=== PATIENT | male | born 1945 | race Caucasian/White ===

== ENCOUNTER 2018-02-26 13:11 | Emergency (ER) | payer MEDICARE, BC, SELFPAY ==
[2018-02-26 13:18] VITALS: BP 113/80; PULSE 72; RESP 18; TEMP 36.4; O2SAT 96
--- NOTE | 2018-02-26 13:22 | ED.GENADUL ---
Disposition Clinical Impression: Finger laceration Disposition: HOME Condition: Fair Instructions: Finger Laceration (ED) Additional Instructions: Continue to elevate the digits today. Tylenol and/or ibuprofen as needed for discomfort. Keep wound clean, dry, covered. Keep current dressing on for the next 24 hours. After that time you may change and replaced with a Band-Aid. When she will take off this bulky dressing please apply the foam and metal splint provided. Monitor wound for signs of infection including redness, warmth, drainage, fever/chills, increased pain. If these arise please seek care urgently once again. Otherwise, please return in 7 days for suture removal. Referrals: Allie Mccollum [Primary Care Provider] - [facility] Emergency Dept. [Outside] Medical Decision Making - Medical Decision Making Patient presents today with chief complaint of laceration to the index finger of the left hand. Wound does extend down onto the radial side of the PIP joint. Sensation is intact as is range of motion. Ligamentous exam is without abnormality. Wound is actively bleeding. Approximately 2cm in length, laceration is S-shaped. Patient denied discussed closure techniques. Wound is in the subcutaneous tissue and is open with flexion. Advised suture closure. We discussed risk/benefits as well as expected procedural steps. He voices understanding and wished to proceed. Procedure note: Using standard sterile technique, a digital block was performed at the base of the index finger of the left hand. This is completed using 1% lidocaine plain. 4 cc was infiltrated. The sufficiently anesthetized the digit. The wound was then copiously irrigated with sterile saline. I used a tourniquet so that I may explore the wound to base in bloodless field. No foreign body or debris was noted. Attention was then turned to closure. #7 simple interrupted sutures were placed using 5-0 nylon. Patient tolerated procedure well and a bulky dressing was applied. Patient I discussed wound care in depth. He will keep his current dressing on for the next 24 hours. After that time, he will keep it clean, dry, covered with new sterile bandage. He was given a foam and metal splint to help immobilize the areas I feel that extreme flexion of the PIP joint may put undue force on the wound. He will return in 7 days for suture removal. We discussed signs symptoms of infection when to seek care urgently once again. Advised he may wash but he may not soak or submerge this may increase his risk for infection. All of his questions and concerns were addressed and he is in agreement with this plan. History of Present Illness - General Chief complaint: Laceration Stated complaint: LEFT POINTER LACERATION Time Seen by Provider: 02/26/18 13:22 Source: patient, RN notes reviewed Mode of arrival: ambulatory Limitations: no limitations - History of Present Illness Initial comments: Patient is a 72-year-old vfljf-jgbj-qftukgub male presents today with chief complaint of laceration to the left index finger. Patient reports a prior to arrival he was woodworking, using an X-Acto knife when he is PIP joint on the dorsal radial aspect of the digit. He denies any altered sensation. Denies other injury the time of the incident. Feels that he has good range of motion. Tdap last received 2013. - Related Data BuPROPion XL [Wellbutrin Xl] 150 mg PO DAILY 06/08/13 Clonazepam 2 mg PO HS 06/08/13 OxyCODONE [Roxicodone] 20 mg PO BID 06/08/13 Dextroamphetamine/Amphetamine [Adderall Xr 30 mg Capsule] 30 mg PO DAILY 02/26/18 Allergies Allergy/AdvReac Type Severity Reaction Status Date / Time gabapentin [From Neurontin] Allergy Skin Rash Unverified 06/08/13 15:26 meperidine HCl [From Demerol] Allergy HTN Unverified 06/08/13 15:26 trazodone Allergy Unverified 02/26/18 13:21 Review of Systems Constitutional: no symptoms reported Respiratory: no symptoms reported Musculoskeletal: as per HPI Skin: as per HPI Neurological: as per HPI Past Medical History - Past Medical History Medical history: cancer (bladder) Pancreatitis, M?ni?re's, SBO, epidural abscess, - Social History Alcohol use: none Drug use: none Living Situation: lives with family General Exam - General Limitations: no limitations General appearance: alert, in no apparent distress - Eye Eye exam: Present: normal apperance - Respiratory Respiratory exam: Absent: respiratory distress - Extremities Exam Extremities exam: Present: full ROM, tenderness, normal capillary refill. Absent: normal inspection (Exam the patient's left upper extremity is significant for a 2 cm S shaped incision along the radial aspect of the proximal index finger, this does extend down over the PIP joint. Sensation is intact. Good range of motion against resistance, no evidence of ligamentous injury. No joint swelling.), joint swelling - Neurological Exam Neurological exam: Present: alert, normal gait. Absent: motor sensory deficit - Psychiatric Psychiatric exam: Present: normal affect, normal mood - Skin Skin exam: Absent: intact (As above) Course Vital Signs - 24 hr 02/26/18 13:18 Temperature 36.4 C L Pulse 72 Respiratory 18 Rate Blood Pressure 113/80 Pulse Oximetry 96
[2018-02-26] MEDS: Lidocaine 1% Multi-Dose 50 ML VIAL (13:32)
--- NOTE | 2018-02-26 13:54 | ED.GENADUL_ITS ---
Disposition Clinical Impression: Finger laceration Disposition: HOME Condition: Fair Instructions: Finger Laceration (ED) Additional Instructions: Continue to elevate the digits today. Tylenol and/or ibuprofen as needed for discomfort. Keep wound clean, dry, covered. Keep current dressing on for the next 24 hours. After that time you may change and replaced with a Band-Aid. When she will take off this bulky dressing please apply the foam and metal splint provided. Monitor wound for signs of infection including redness, warmth , drainage, fever/chills, increased pain. If these arise please seek care urgently once again. Otherwise, please return in 7 days for suture removal. Referrals: Allie Mccollum [Primary Care Provider] - [facility] Emergency Dept. [Outside] Medical Decision Making - Medical Decision Making Patient presents today with chief complaint of laceration to the index finger of the left hand. Wound does extend down onto the radial side of the PIP joint. Sensation is intact as is range of motion. Ligamentous exam is without abnormality. Wound is actively bleeding. Approximately 2cm in length, laceration is S-shaped. Patient denied discussed closure techniques. Wound is in the subcutaneous tissue and is open with flexion. Advised suture closure. We discussed risk/benefits as well as expected procedural steps. He voices understanding and wished to proceed. Procedure note: Using standard sterile technique, a digital block was performed at the base of the index finger of the left hand. This is completed using 1% lidocaine plain. 4 cc was infiltrated. The sufficiently anesthetized the digit. The wound was then copiously irrigated with sterile saline. I used a tourniquet so that I may explore the wound to base in bloodless field. No foreign body or debris was noted. Attention was then turned to closure. #7 simple interrupted sutures were placed using 5-0 nylon. Patient tolerated procedure well and a bulky dressing was applied. Patient I discussed wound care in depth. He will keep his current dressing on for the next 24 hours. After that time, he will keep it clean, dry, covered with new sterile bandage. He was given a foam and metal splint to help immobilize the areas I feel that extreme flexion of the PIP joint may put undue force on the wound. He will return in 7 days for suture removal. We discussed signs symptoms of infection when to seek care urgently once again. Advised he may wash but he may not soak or submerge this may increase his risk for infection. All of his questions and concerns were addressed and he is in agreement with this plan. History of Present Illness - General Chief complaint: Laceration Stated complaint: LEFT POINTER LACERATION Time Seen by Provider: 02/26/18 13:22 Source: patient, RN notes reviewed Mode of arrival: ambulatory Limitations: no limitations - History of Present Illness Initial comments: Patient is a 72-year-old gyysq-slxr-alyrkazs male presents today with chief complaint of laceration to the left index finger. Patient reports a prior to arrival he was woodworking, using an X-Acto knife when he is PIP joint on the dorsal radial aspect of the digit. He denies any altered sensation. Denies other injury the time of the incident. Feels that he has good range of motion. Tdap last received 2013. - Related Data BuPROPion XL [Wellbutrin Xl] 150 mg PO DAILY 06/08/13 Clonazepam 2 mg PO HS 06/08/13 OxyCODONE [Roxicodone] 20 mg PO BID 06/08/13 Dextroamphetamine/Amphetamine [Adderall Xr 30 mg Capsule] 30 mg PO DAILY Allergies Allergy/AdvReac Type Severity Reaction Status Date / Time gabapentin [From Neurontin] Allergy Skin Rash Unverified 06/08/13 15:26 meperidine HCl [From Demerol] Allergy HTN Unverified 06/08/13 15:26 trazodone Allergy Unverified 02/26/18 13:21 Review of Systems Constitutional: no symptoms reported Respiratory: no symptoms reported Musculoskeletal: as per HPI Skin: as per HPI Neurological: as per HPI Past Medical History - Past Medical History Medical history: cancer (bladder) Pancreatitis, M ni re's, SBO, epidural abscess, - Social History Alcohol use: none Drug use: none Living Situation: lives with family General Exam - General Limitations: no limitations General appearance: alert, in no apparent distress - Eye Eye exam: Present: normal apperance - Respiratory Respiratory exam: Absent: respiratory distress - Extremities Exam Extremities exam: Present: full ROM, tenderness, normal capillary refill. Absent: normal inspection (Exam the patient's left upper extremity is significant for a 2 cm S shaped incision along the radial aspect of the proximal index finger, this does extend down over the PIP joint. Sensation is intact. Good range of motion against resistance, no evidence of ligamentous injury. No joint swelling.), joint swelling - Neurological Exam Neurological exam: Present: alert, normal gait. Absent: motor sensory deficit - Psychiatric Psychiatric exam: Present: normal affect, normal mood - Skin Skin exam: Absent: intact (As above) Course Vital Signs - 24 hr 02/26/18 13:18 Temperature 36.4 C L Pulse 72 Respiratory 18 Rate Blood Pressure 113/80 Pulse Oximetry 96
--- NOTE | 2018-02-26 15:42 | NUR.NOTE ---
Nursing Note: baseball finger splint given to take home.
== END 2018-02-26 14:09 | disposition home or self-care (01) ==
PROVIDERS: Emergency Provider Student in an Organized Health Care Education/Training Program; PCP Internal Medicine Adolescent Medicine
DX: S61.211A Laceration without foreign body of left index finger without damage to nail, initial encounter (principal); W26.0XXA Contact with knife, initial encounter
CPT/HCPCS: 12001

== ENCOUNTER 2018-03-06 07:53 | Emergency (ER) | payer MEDICARE, SELFPAY ==
[2018-03-06 07:57] VITALS: BP 110/72; PULSE 70; RESP 16; TEMP 36.7; O2SAT 99
--- NOTE | 2018-03-06 09:17 | W.ED.GENAD ---
Discharge Plan Discharge Details Chief Complaint: SutureRem Clinical Impression: Encounter for removal of sutures Reason For Visit: suture removal Primary Care Provider: Allie Mccollum ED Provider: Jermain Brownlee Disposition Patient Disposition: HOME Home Meds and New Rx's Prescriptions: Continue clonazepam 1 MG tablet 2 mg PO HS RF: 0 bupropion HCl 150 MG tablet extended release 24 hr 150 mg PO DAILY RF: 0 oxycodone 20 MG tablet 20 mg PO BID RF: 0 dextroamphetamine-amphetamine [Adderall XR] 30 MG capsule,extended release 24hr 30 mg PO DAILY RF: 0 Discharge Instructions Instructions: Stitches Removal (ED) Discharge Data Discharge Physician: Jermain Brownlee Medical Decision Making MDM Narrative Medical decision making narrative: removed 7 sutures without incident. No evidence of infection or tendon injury on exam, will d/c home HPI - General Adult General Mode of arrival: ambulatory. Date/Time Provider Initiated Documentation: 03/06/18 09:17. Limitations to Documentation: no limitations. Information obtained by: patient. History of Present Illness 72 year old M presents to the emergency department with the chief complaint of left index finger suture removal, described as mild, with intensity rated at 1. and is localized to the upper extremity. Patient reports no radiation. Patient notes no other symptoms.. Patient did receive the following treatments prior to arrival, none Related Data Home Medications Medication Instructions Recorded Confirmed bupropion HCl 150 mg PO DAILY 06/08/13 03/06/18 clonazepam 2 mg PO HS 06/08/13 03/06/18 oxycodone 20 mg PO BID 06/08/13 03/06/18 dextroamphetamine-amphetamine 30 mg PO DAILY 02/26/18 03/06/18 [Adderall XR] Allergies Allergy/AdvReac Type Severity Reaction Status Date / Time gabapentin [From Neurontin] Allergy Skin Rash Unverified 03/06/18 08:02 meperidine HCl [From Demerol] Allergy HTN Unverified 03/06/18 08:02 trazodone Allergy Unverified 03/06/18 08:02 General Stated Complaint: SutureRem LANCE: 5 Review of Systems Review of Systems All systems reviewed & are unremarkable except as noted in HPI and below Constitutional Denies chills, Denies fever(s) and Denies weakness Eyes Patient Denies loss of vision ENT Denies change in voice Cardiovascular Denies chest pain and Denies dyspnea Respiratory Denies dyspnea Gastrointestinal Denies abdominal pain, Denies nausea and Denies vomiting Genitourinary Denies dysuria Musculoskeletal Denies joint swelling Integumentary/Breasts Denies rash Neurologic Denies loss of vision and Denies weakness Psychiatric Denies depression Endocrine Denies cold intolerance and Denies heat intolerance Allergic/Immunologic Reports urticaria PFSH Social History Smoking/Tobacco Use Status: Never Exam Const General: no acute distress Orientation: alert HENMT Head: normal to inspection Ears: external ears normal General nose exam: external nose normal Mouth: moist mucous membranes Eyes General: appearance normal, both eyes and all related structures Neck Neck: normal visual inspection Resp Effort & Inspection: normal respiratory effort and able to speak in complete sentences Cardio Rate: regular rate Skin General skin exam: no rashes or lesions noted Neuro General: alert and oriented x3 Extrem General: other (left index finger laceration that is well healig without redness or discharge or warmth, full rom of the finger) Psych Mental Status: mental status grossly normal Course Vital Signs Temperature 36.7 C 03/06/18 07:57 Pulse 70 03/06/18 07:57 Respiratory Rate 16 03/06/18 07:57 Blood Pressure 110/72 03/06/18 07:57 Pulse Oximetry 99 03/06/18 07:57 Temperature 36.7 C 03/06/18 07:57 Pulse 70 03/06/18 07:57 Respiratory Rate 16 03/06/18 07:57 Blood Pressure 110/72 03/06/18 07:57 Pulse Oximetry 99 03/06/18 07:57
--- NOTE | 2018-03-06 09:21 | ED.GENADUL_ITS ---
Discharge Plan Discharge Details Chief Complaint: SutureRem Clinical Impression: Encounter for removal of sutures Reason For Visit: suture removal Primary Care Provider: Allie Mccollum ED Provider: Jermain Brownlee Disposition Patient Disposition: HOME Home Meds and New Rx's Prescriptions: Continue clonazepam 1 MG tablet 2 mg PO HS RF: 0 bupropion HCl 150 MG tablet extended release 24 hr 150 mg PO DAILY RF: 0 oxycodone 20 MG tablet 20 mg PO BID RF: 0 dextroamphetamine-amphetamine [Adderall XR] 30 MG capsule,extended release 24hr 30 mg PO DAILY RF: 0 Discharge Instructions Instructions: Stitches Removal (ED) Discharge Data Discharge Physician: Jermain Brownlee Medical Decision Making MDM Narrative Medical decision making narrative: removed 7 sutures without incident. No evidence of infection or tendon injury on exam, will d/c home HPI - General Adult General Mode of arrival: ambulatory . Date/Time Provider Initiated Documentation: 03/06/18 09:17 . Limitations to Documentation: no limitations . Information obtained by: patient . History of Present Illness 72 year old M presents to the emergency department with the chief complaint of left index finger suture removal, described as mild, with intensity rated at 1. and is localized to the upper extremity. Patient reports no radiation. Patient notes no other symptoms.. Patient did receive the following treatments prior to arrival, none Related Data Home Medications Medication Instructions Recorded Confirmed bupropion HCl 150 mg PO DAILY 06/08/13 03/06/18 clonazepam 2 mg PO HS 06/08/13 03/06/18 oxycodone 20 mg PO BID 06/08/13 03/06/18 dextroamphetamine-amphetamine 30 mg PO DAILY 02/26/18 03/06/18 [Adderall XR] Allergies Allergy/AdvReac Type Severity Reaction Status Date / Time gabapentin [From Neurontin] Allergy Skin Rash Unverified 03/06/18 08:02 meperidine HCl [From Demerol] Allergy HTN Unverified 03/06/18 08:02 trazodone Allergy Unverified 03/06/18 08:02 General Stated Complaint: SutureRem LANCE: 5 Review of Systems Review of Systems All systems reviewed & are unremarkable except as noted in HPI and below Constitutional Denies chills, Denies fever(s) and Denies weakness Eyes Patient Denies loss of vision ENT Denies change in voice Cardiovascular Denies chest pain and Denies dyspnea Respiratory Denies dyspnea Gastrointestinal Denies abdominal pain, Denies nausea and Denies vomiting Genitourinary Denies dysuria Musculoskeletal Denies joint swelling Integumentary/Breasts Denies rash Neurologic Denies loss of vision and Denies weakness Psychiatric Denies depression Endocrine Denies cold intolerance and Denies heat intolerance Allergic/Immunologic Reports urticaria PFSH Social History Smoking/Tobacco Use Status: Never Exam Const General: no acute distress Orientation: alert HENMT Head: normal to inspection Ears: external ears normal General nose exam: external nose normal Mouth: moist mucous membranes Eyes General: appearance normal, both eyes and all related structures Neck Neck: normal visual inspection Resp Effort & Inspection: normal respiratory effort and able to speak in complete sentences Cardio Rate: regular rate Skin General skin exam: no rashes or lesions noted Neuro General: alert and oriented x3 Extrem General: other (left index finger laceration that is well healig without redness or discharge or warmth, full rom of the finger) Psych Mental Status: mental status grossly normal Course Vital Signs Temperature 36.7 C 03/06/18 07:57 Pulse 70 03/06/18 07:57 Respiratory Rate 16 03/06/18 07:57 Blood Pressure 110/72 03/06/18 07:57 Pulse Oximetry 99 03/06/18 07:57 Temperature 36.7 C 03/06/18 07:57 Pulse 70 03/06/18 07:57 Respiratory Rate 16 03/06/18 07:57 Blood Pressure 110/72 03/06/18 07:57 Pulse Oximetry 99 03/06/18 07:57
== END 2018-03-06 09:26 | disposition home or self-care (01) ==
PROVIDERS: Emergency Provider Emergency Medicine; PCP Internal Medicine Adolescent Medicine
DX: S61.211D Laceration without foreign body of left index finger without damage to nail, subsequent encounter (principal); W26.0XXD Contact with knife, subsequent encounter

== ENCOUNTER 2018-10-12 21:10 | Emergency (ER) | payer MEDICARE, BC, SELFPAY ==
--- NOTE | 2018-10-12 21:11 | W.ED.GENAD ---
Discharge Plan Disposition Patient Disposition: HOME Condition: Stable Discharge Details Chief Complaint: Abd Prob Clinical Impression: Abdominal pain Primary Care Provider: Allie Mccollum ED Provider: Jermain Brownlee Home Meds and New Rx's Prescriptions: New lidocaine HCl [Lidocaine Viscous] 2 % solution 15 ml MM BID-QID PRN (Reason: abdominal pain) Qty: 600 RF: 0 No Action clonazepam 1 MG tablet 2 mg PO HS RF: 0 bupropion HCl 150 MG tablet extended release 24 hr 150 mg PO DAILY RF: 0 oxycodone 20 MG tablet 20 mg PO BID RF: 0 dextroamphetamine-amphetamine [Adderall XR] 30 MG capsule,extended release 24hr 30 mg PO DAILY RF: 0 Discharge Instructions Instructions: Abdominal Pain (ED) Additional Instructions: I placed you on our follow up list to meet with the general surgeons to discuss having an endoscopy If you have severe worsening pain or pain changes return to the emergency department for reevaluation Medical Decision Making 73 yo male wt pmhx of dm, htn, hld, 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 He was admitted in August for sbo managed nonoperatively and d/c'd. He has had weeks of epigastricpain since then and went to the ED on 10/08 at [facility] [place] and per their records had negative abdominal ct and referred him for outpatient endoscopy. He states he continues to have pain so came here. He localizes the pain to the epigastric area. Has no distention and soft abdomen on exam. Denies chest pain or sob and no pain with exertion so doubt acs. I recommended repeat imaging which he declined as he has had numerous ct's in the past and is convinced this is his esophagus and needs an endoscopy and wants his pain better controlled. He is willing to let me obtain lab work so will evaluate for this and try lidocaine orally labs show no acute abnormalities. He had some relief with lidocaine. He is still declining any imaging at this time despite being told I can't rule out acute pathology such as mesenteric ischemia, he has the capacity to make his own decisions. He really wants to have an endoscopy francisca and I offered to place him on our f/u list to see general surgery to discuss having an endoscopy francisca. He will f/u with them and return if he changes his mind on having a CT or if he worsens Differential Diagnosis gastritis, esophagitis, pud Lab Data Lab results reviewed: Yes I reviewed the patient's lab results. HPI General Mode of arrival: ambulatory. Date/Time Provider Initiated Documentation: 10/12/18 21:10. Limitations to Documentation: no limitations. Information obtained by: patient. History of Present Illness 73 year old M presents to the emergency department with the chief complaint of abdominal pain, described as moderate, Quality is described as burning and aching, and is localized to the abdomen. Patient reports no radiation. and it has been constant. No relieving factors improve symptom(s), No exacerbating factors reported . Patient did receive the following treatments prior to arrival, other (ppi, sucralfate) Related Data Home Medications Medication Instructions Recorded Confirmed bupropion HCl 150 mg PO DAILY 06/08/13 03/06/18 clonazepam 2 mg PO HS 06/08/13 03/06/18 oxycodone 20 mg PO BID 06/08/13 03/06/18 dextroamphetamine-amphetamine 30 mg PO DAILY 02/26/18 03/06/18 [Adderall XR] lidocaine HCl [Lidocaine Viscous] 15 ml MM BID-QID PRN #600 ml 10/12/18 Previous Rx's Medication Instructions Recorded lidocaine HCl [Lidocaine Viscous] 15 ml MM BID-QID PRN #600 ml 10/12/18 Allergies Allergy/AdvReac Type Severity Reaction Status Date / Time gabapentin [From Neurontin] Allergy Skin Rash Unverified 03/06/18 08:02 meperidine HCl [From Demerol] Allergy HTN Unverified 03/06/18 08:02 trazodone Allergy Unverified 03/06/18 08:02 General LANCE: 5 Review of Systems Review of Systems All systems reviewed & are unremarkable except as noted in HPI and below Constitutional Denies chills, Denies fever(s) and Denies weakness Cardiovascular Denies chest pain and Denies dyspnea Respiratory Denies cough and Denies dyspnea Gastrointestinal Denies nausea and Denies vomiting Integumentary/Breasts Denies rash Neurologic Denies weakness PFSH Social History Smoking/Tobacco Use Status: Never Drug use: Never Do you feel safe in your relationship?: Yes Exam Const General: no acute distress Orientation: alert HENMT Head: normal to inspection Ears: external ears normal General nose exam: external nose normal Mouth: moist mucous membranes Eyes General: appearance normal, both eyes and all related structures Neck Neck: normal visual inspection Resp Effort & Inspection: normal respiratory effort and able to speak in complete sentences Cardio Rate: regular rate GI Palpation: soft Auscultation: abnormal bowel sounds Skin General skin exam: no rashes or lesions noted Neuro General: alert and oriented x3 Extrem General: normal to inspection Psych Mental Status: mental status grossly normal
[2018-10-12 21:25] VITALS: BP 136/80; PULSE 71; RESP 24; TEMP 36.5; O2SAT 98
--- NOTE | 2018-10-12 21:46 | ED.GENADUL_ITS ---
Discharge Plan Disposition Patient Disposition: HOME Condition: Stable Discharge Details Chief Complaint: Abd Prob Clinical Impression: Abdominal pain Primary Care Provider: Allie Mccollum ED Provider: Jermain Brownlee Home Meds and New Rx's Prescriptions: New lidocaine HCl [Lidocaine Viscous] 2 % solution 15 ml MM BID-QID PRN (Reason: abdominal pain) Qty: 600 RF: 0 No Action clonazepam 1 MG tablet 2 mg PO HS RF: 0 bupropion HCl 150 MG tablet extended release 24 hr 150 mg PO DAILY RF: 0 oxycodone 20 MG tablet 20 mg PO BID RF: 0 dextroamphetamine-amphetamine [Adderall XR] 30 MG capsule,extended release 24hr 30 mg PO DAILY RF: 0 Discharge Instructions Instructions: Abdominal Pain (ED) Additional Instructions: I placed you on our follow up list to meet with the general surgeons to discuss having an endoscopy If you have severe worsening pain or pain changes return to the emergency department for reevaluation Medical Decision Making 73 yo male wt pmhx of dm, htn, hld, 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 He was admitted in August for sbo managed nonoperatively and d/c'd. He has had weeks of epigastricpain since then and [place] [facility] [place] their records had negative abdominal ct and referred him for outpatient endoscopy. He states he continues to have pain so came here. He localizes the pain to the epigastric area. Has no distention and soft abdomen on exam. Denies chest pain or sob and no pain with exertion so doubt acs. I recommended repeat imaging which he declined as he has had numerous ct's in the past and is convinced this is his esophagus and needs an endoscopy and wants his pain better controlled. He is willing to let me obtain lab work so will evaluate for this and try lidocaine orally labs show no acute abnormalities. He had some relief with lidocaine. He is still declining any imaging at this time despite being told I can't rule out acute pathology such as mesenteric ischemia, he has the capacity to make his own decisions. He really wants to have an endoscopy francisca and I offered to place him on our f/u list to see general surgery to discuss having an endoscopy francisca. He will f/u with them and return if he changes his mind on having a CT or if he worsens Differential Diagnosis gastritis, esophagitis, pud Lab Data Lab results reviewed: Yes I reviewed the patient's lab results. HPI General Mode of arrival: ambulatory . Date/Time Provider Initiated Documentation: 10/12/18 21:10 . Limitations to Documentation: no limitations . Information obtained by: patient . History of Present Illness 73 year old M presents to the emergency department with the chief complaint of abdominal pain, described as moderate, Quality is described as burning and aching, and is localized to the abdomen. Patient reports no radiation. and it has been constant. No relieving factors improve symptom(s), No exacerbating factors reported . Patient did receive the following treatments prior to arrival, other (ppi, sucralfate) Related Data Home Medications Medication Instructions Recorded Confirmed bupropion HCl 150 mg PO DAILY 06/08/13 03/06/18 clonazepam 2 mg PO HS 06/08/13 03/06/18 oxycodone 20 mg PO BID 06/08/13 03/06/18 dextroamphetamine-amphetamine 30 mg PO DAILY 02/26/18 03/06/18 [Adderall XR] lidocaine HCl [Lidocaine Viscous] 15 ml MM BID-QID PRN #600 ml 10/12/18 Previous Rx's Medication Instructions Recorded lidocaine HCl [Lidocaine Viscous] 15 ml MM BID-QID PRN #600 ml 10/12/18 Allergies Allergy/AdvReac Type Severity Reaction Status Date / Time gabapentin [From Neurontin] Allergy Skin Rash Unverified 03/06/18 08:02 meperidine HCl [From Demerol] Allergy HTN Unverified 03/06/18 08:02 trazodone Allergy Unverified 03/06/18 08:02 General LANCE: 5 Review of Systems Review of Systems All systems reviewed & are unremarkable except as noted in HPI and below Constitutional Denies chills, Denies fever(s) and Denies weakness Cardiovascular Denies chest pain and Denies dyspnea Respiratory Denies cough and Denies dyspnea Gastrointestinal Denies nausea and Denies vomiting Integumentary/Breasts Denies rash Neurologic Denies weakness PFSH Social History Smoking/Tobacco Use Status: Never Drug use: Never Do you feel safe in your relationship?: Yes Exam Const General: no acute distress Orientation: alert HENMT Head: normal to inspection Ears: external ears normal General nose exam: external nose normal Mouth: moist mucous membranes Eyes General: appearance normal, both eyes and all related structures Neck Neck: normal visual inspection Resp Effort & Inspection: normal respiratory effort and able to speak in complete sentences Cardio Rate: regular rate GI Palpation: soft Auscultation: abnormal bowel sounds Skin General skin exam: no rashes or lesions noted Neuro General: alert and oriented x3 Extrem General: normal to inspection Psych Mental Status: mental status grossly normal
[2018-10-12 21:59] LABS: Absolute Basophil Count 0.03 k/cumm (0.0-0.2); Absolute Eosinophil Count 0.15 k/cumm (0.0-0.7); Absolute Lymphocyte Count 2.04 k/cumm (1.2-3.4); Absolute Monocyte Count 0.51 k/cumm (0.11-0.7); Absolute Neutrophil Count 3.65 k/cumm (1.2-6.7); Basophils % 0.5; Eosinophils % 2.4; HCT 38.2 % (40.0-50.0); HGB 12.9 g/dL (13.5-17.5); Mean Corp. HGB Concentration 33.8 g/dL (32.0-36.0); Mean Corpuscular Hemoglobin 30.6 pg (27.0-33.0); Mean Corpuscular Volume 90.5 fL (80-95); Mean Platelet Volume 11.3 fL (8.0-11.0); Neutrophils % 57.1; Platelet Count 192 x1000/uL (130-400); RBC 4.22 m/cumm (4.50-6.00); RBC Distribution Width 13.5 % (11.8-14.1); White Blood Cell Count 6.38 k/cumm (4.4-10.8)
[2018-10-12 22:18] LABS: ALT 34 U/L (12-78); AST 32 U/L (15-37); Albumin 3.9 g/dL (3.4-5.0); Alkaline Phosphatase 101 U/L (46-116); Anion Gap 9.3 mmol/L (3-11); BUN 22 mg/dL (7-18); Bilirubin, Direct 0.13 mg/dL (0.00-0.20); Bilirubin, Total 0.6 mg/dL (0.2-1.0); CO2 28.7 mmol/L (21.0-32.0); CREATININE 0.98 mg/dL (0.70-1.30); Calcium 8.9 mg/dL (8.5-10.1); Chloride 97 mmol/L (98-107); Glucose 107 mg/dL (70-100); Lipase 105 U/L (73-393); Magnesium 2.1 mg/dL (1.8-2.4); Potassium 3.6 mmol/L (3.5-5.1); Sodium 135 mmol/L (136-145); Total Protein 7.5 g/dL (6.4-8.2)
[2018-10-12] MEDS: Lidocaine 2% Viscous 15 ML CUP (23:00)
--- NOTE | 2018-10-13 10:10 | NUR.NOTE ---
Nursing Note: Faxed to General Surgery referral for follow up. Ruth Gautam.
== END 2018-10-12 22:02 | disposition home or self-care (01) ==
PROVIDERS: Emergency Provider Emergency Medicine; PCP Internal Medicine Adolescent Medicine
DX: R10.9 Unspecified abdominal pain (principal); Z53.29 Procedure and treatment not carried out because of patient's decision for other reasons; I10 Essential (primary) hypertension
CPT/HCPCS: 36415; 80053; 80076; 83690; 99283; 83735; 85025

== ENCOUNTER 2024-02-23 23:23 | Emergency (ER) | payer MEDICARE, BC, SELFPAY ==
[2024-02-23 23:25] VITALS: PULSE 72; RESP 16; TEMP 36.6; O2SAT 97
--- NOTE | 2024-02-23 23:26 | ED.GENADUL_ITS ---
Discharge Plan Disposition Patient Disposition: Home Condition: Good Discharge Details Clinical Impression: Dog bite of finger Primary Care Provider: Allie Mccollum ED Provider: Blue Frias Meds and New Rx's Prescriptions: New amoxicillin-pot clavulanate 875-125 mg tablet 1 tab PO BID Qty: 8 0RF Continued clonazepam 1 MG tablet 2 mg PO HS oxycodone 20 MG tablet 20 mg PO BID dextroamphetamine-amphetamine [Adderall XR] 30 MG capsule,extended release 24hr 30 mg PO DAILY sertraline 100 mg tablet 150 mg PO DAILY Patient Comments: TAKE ONE AND ONE-HALF TABLETS BY MOUTH EVERY DAY lisinopril 10 mg tablet 10 mg PO DAILY Patient Comments: TAKE ONE TABLET BY MOUTH EVERY DAY pregabalin 300 mg capsule 300 mg PO DAILY Patient Comments: TAKE TWO CAPSULES BY MOUTH EVERY EVENING mirtazapine 15 mg tablet 15 mg PO DAILY Patient Comments: TAKE ONE TABLET BY MOUTH EVERY EVENING omeprazole 20 mg capsule,delayed release(DR/EC) 20 mg PO DAILY Patient Comments: TAKE TWO CAPSULES BY MOUTH EVERY DAY Discharge Instructions Instructions: Diphtheria and Tetanus Toxoids, Animal Bites ED Additional Instructions: You were seen in the ED after a dog bite to your right finger. X-rays without evidence of fracture or foreign body. You may change the dressing applied rey ght in 24 to 36 hours. Take antibiotic as prophylaxis to prevent infection. Sutures out in 10 days. Return to ED for any increasing pain, redness, swelling, drainage. HPI General Mode of arrival: ambulatory . Date/Time Provider Initiated Documentation: 02/23/24 23:26 . Limitations to Documentation: no limitations . Information obtained by: patient and RN notes reviewed . HPI Narrative: Patient presents to ED with a dog bite to the right index finger. Injury occurred at home with his dog. Dog is up-to-date on shots. Patient has a laceration to the proximal palmar right index finger. Patient thinks he is up-to-date on tetanus. He is able to flex and extend the finger but is having a fair amount of pain. 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 Denies any other injury or complaint. Related Data Home Medications ?Medication ?Instructions ?Recorded ?Confirmed clonazepam 1 mg tablet 2 mg PO HS 06/08/13 02/23/24 oxycodone 20 mg tablet 20 mg PO BID 06/08/13 02/23/24 dextroamphetamine-amphetamine ER 30 mg PO DAILY 02/26/18 02/23/24 30 mg 24hr capsule,extend release (Adderall XR) lisinopril 10 mg tablet 10 mg PO DAILY 02/23/24 02/23/24 mirtazapine 15 mg tablet 15 mg PO DAILY 02/23/24 02/23/24 omeprazole 20 mg capsule,delayed 20 mg PO DAILY 02/23/24 02/23/24 release pregabalin 300 mg capsule 300 mg PO DAILY 02/23/24 02/23/24 sertraline 100 mg tablet 150 mg PO DAILY 02/23/24 02/23/24 amoxicillin 875 mg-potassium 1 tab PO BID #8 tabs 02/24/24 clavulanate 125 mg tablet Previous Rx's ?Medication ?Instructions ?Recorded amoxicillin 875 mg-potassium 1 tab PO BID #8 tabs 02/24/24 clavulanate 125 mg tablet Allergies Allergy/AdvReac Type Severity Reaction Status Date / Time gabapentin (From Neurontin) Allergy Skin Rash Verified 02/23/24 23:28 meperidine HCl (From Demerol) Allergy HTN Verified 02/23/24 23:28 trazodone Allergy Unknown Verified 02/23/24 23:28 General LANCE: 5 Review of Systems Narrative: Per HPI Exam Narrative Exam Narrative: Const: WDWN elderly male in NAD. VS per triage. HEENT: NC/AT. Normal facial exam. Neck: Supple. Trachea midline. Lungs: Normal respiratory effort. Neuro: A+O x 3. Normal speech, mentation, gait. Cranial nerves II - XII grossly intact. No gross motor or sensory deficit. Ext: Right hand with a 1 cm laceration proximal index finger. Flexion in tact. Sensation in tact. Procedures Laceration Laceration 1: Site: hand Side (If applicable): right Size (cm): 1 Description: linear and clean Depth: simple, single layer Pre-repair: wound explored, irrigated extensively and deep structures intact Skin layer closed with: nylon Size (cm): 5-0 Number of sutures: 4 Technique: simple, interrupted Nerve Block Nerve Block 1: Time out performed: Yes Local Anesthetic: Lidocaine 1% Amount of anesthesia used (mL): 4 Side: right Nerve Blocks: digital Procedure Successful: Yes Patient Tolerated Procedure: well Complications: none Medical Decision Making Patient presenting to ED with right index finger laceration sustained when his dog bit him. It is proximal and on the palmar side at the PIP joint. He has full flexion and extension of the finger. Sensation is intact. Dog is up-to-date on rabies vaccination. Patient thinks he is up-to-date on tetanus. Digital block performed. X-ray obtained. Dose of Augmentin given. Patient's x-ray per my review negative for fracture or foreign body. Digital block worked very well. Wound irrigated out. Fairly superficial with no evidence of deep involvement. 4 nylon sutures placed in simple interrupted fashion. Xeroform dressing applied. Tetanus is not up-to-date as his last tetanus was 2018 when he was here for a laceration. It is updated again tonight. Patient will be continued on Augmentin for 4 days. Sutures out in 10 days. Return precautions provided. Imaging Data Radiologic Study: Attestation: I personally reviewed and interpreted this imaging study as follows: Imaging: X-Ray My impression: See MDM [facility] All Active Problems (Updated 02/24/24 @ 00:37 by Blue Frias MD) Dog bite of finger (Acute) Medical History Epigastric pain (~08/2018) [facility] ED visit 10/12/18. Presented with epigastric pain which he reports he had for weeks, declined imaging [place] [facility] [place] [facility] [place]mg History of small bowel obstruction (08/2018) Bladder cancer cystoprostatectomy 2007 Hyperlipidemia HTN (hypertension) Diabetes Surgical History S/P radical cystoprostatectomy (~2007) Social History Smoking/Tobacco Use Status: Never Smoking risk assessment performed?: Yes Drug use: Never Do you feel safe in your relationship?: Yes
--- NOTE | 2024-02-23 23:30 | DI.RAD_ITS ---
Exam(s) XR FINGER RT INDEX EXAM: XR FINGER RT INDEX CLINICAL HISTORY: dog bite. TECHNIQUE: 2D digital imaging was performed. COMPARISON: No exams were available for comparison FINDINGS: 3 views No evidence acute fracture or dislocation or radiopaque foreign body. No gas in the soft tissues. IMPRESSION: No significant radiographic findings. DATA REPOSITORY: RADIATION DOSE DELIVERED:
[2024-02-23] MEDS: Lidocaine 1% Multi-Dose 50 ML VIAL (23:43)
[2024-02-23] MEDS: Amoxicillin 875/Clav. 125 TAB PO (23:52)
--- NOTE | 2024-02-24 00:24 | NUR.NOTE ---
Addendum entered by Ruth Gautam 02/24/24 09:03: Message left for Cory Amaral, Health Office for [place], that there is an animal bite report faxed to contract post office clerk for him to review, or can call ED for details. Cory Amaral [phone] Original Note: Animal bite form faxed to [facility] Health officer Cory Amaral [phone]. Did not call him due to hour of ED visit. 02/24/24 00:15.Nursing Note:
[2024-02-24] MEDS: Tetanus & Diphtheria Tox,ADULT 0.5 ML VIAL IM (00:37)
--- NOTE | 2024-02-24 00:52 | DI.VRAD_ITS ---
PROCEDURE INFORMATION: Exam: XR Right Finger(s) Exam date and time: 02/24/2024 12:02 AM Age: 78 years old Clinical indication: Injury or trauma; Other: Dog bite; Blunt trauma (contusions or hematomas); Right; Index finger TECHNIQUE: Imaging protocol: Radiologic exam of the right fingers. Views: Minimum 2 views. COMPARISON: No relevant prior studies available. FINDINGS: Bones/joints: Scattered mild degenerative disease of the interphalangeal joints. No acute fracture or dislocation. Soft tissues: No radiopaque foreign body. Mild soft swelling surrounding the index finger. IMPRESSION: No acute fracture or dislocation. No radiopaque foreign body. Dictated and Authenticated by: Yovani Scott MD. Ordering:DAVID Mcarthur MD
== END 2024-02-24 00:42 | disposition home or self-care (01) ==
PROVIDERS: Emergency Provider Emergency Medicine; PCP Internal Medicine Adolescent Medicine
DX: S61.210A Laceration without foreign body of right index finger without damage to nail, initial encounter (principal); I10 Essential (primary) hypertension; E78.5 Hyperlipidemia, unspecified; E11.9 Type 2 diabetes mellitus without complications; Z23 Encounter for immunization; W54.0XXA Bitten by dog, initial encounter; Y93.89 Activity, other specified; Y92.018 Other place in single-family (private) house as the place of occurrence of the external cause
CPT/HCPCS: 12001; 90471; 90714; 99283; 73140; J2003

== ENCOUNTER 2024-03-05 09:26 | Emergency (ER) | payer MEDICARE, BC, SELFPAY ==
[2024-03-05 09:31] VITALS: BP 113/64; PULSE 56; RESP 15; O2SAT 97
--- NOTE | 2024-03-05 10:11 | W.ED.GENAD ---
Discharge Plan Disposition Patient Disposition: Home Condition: Stable Discharge Details Clinical Impression: Visit for suture removal Primary Care Provider: Allie Mccollum ED Provider: Wilmer Butler Home Meds and New Rx's Prescriptions: Continued clonazepam 1 MG tablet 2 mg PO HS oxycodone 20 MG tablet 20 mg PO BID dextroamphetamine-amphetamine [Adderall XR] 30 MG capsule,extended release 24hr 30 mg PO DAILY sertraline 100 mg tablet 150 mg PO DAILY Patient Comments: TAKE ONE AND ONE-HALF TABLETS BY MOUTH EVERY DAY lisinopril 10 mg tablet 10 mg PO DAILY Patient Comments: TAKE ONE TABLET BY MOUTH EVERY DAY pregabalin 300 mg capsule 300 mg PO DAILY Patient Comments: TAKE TWO CAPSULES BY MOUTH EVERY EVENING mirtazapine 15 mg tablet 15 mg PO DAILY Patient Comments: TAKE ONE TABLET BY MOUTH EVERY EVENING omeprazole 20 mg capsule,delayed release(DR/EC) 20 mg PO DAILY Patient Comments: TAKE TWO CAPSULES BY MOUTH EVERY DAY Discharge Instructions Instructions: Stitches Removal Additional Instructions: Keep wound clean to allow for continued healing. Keep dressing intact and change daily monitoring for signs of infection including increased warmth, swelling, discharge, redness or pain. Return to the emergency department for any worsening or new concerning symptoms. You may wish to seek assistance from [employer] link trainer maintenance worker. Discharge Data Discharge Date/Time-TO BE ENTERED AT DEPARTURE: 03/05/24 10:32 HPI General Mode of arrival: ambulatory. Date/Time Provider Initiated Documentation: 03/05/24 09:31. Limitations to Documentation: no limitations. Information obtained by: patient. HPI Narrative: 78-year-old male here for suture removal. Wound healing well. No concerns. Related Data Home Medications ?Medication ?Instructions ?Recorded ?Confirmed clonazepam 1 mg tablet 2 mg PO HS 06/08/13 03/05/24 oxycodone 20 mg tablet 20 mg PO BID 06/08/13 03/05/24 dextroamphetamine-amphetamine ER 30 mg PO DAILY 02/26/18 03/05/24 30 mg 24hr capsule,extend release (Adderall XR) lisinopril 10 mg tablet 10 mg PO DAILY 02/23/24 03/05/24 mirtazapine 15 mg tablet 15 mg PO DAILY 02/23/24 03/05/24 omeprazole 20 mg capsule,delayed 20 mg PO DAILY 02/23/24 03/05/24 release pregabalin 300 mg capsule 300 mg PO DAILY 02/23/24 03/05/24 sertraline 100 mg tablet 150 mg PO DAILY 02/23/24 03/05/24 Allergies Allergy/AdvReac Type Severity Reaction Status Date / Time gabapentin (From Neurontin) Allergy Skin Rash Verified 03/05/24 09:37 meperidine HCl (From Demerol) Allergy HTN Verified 03/05/24 09:37 trazodone Allergy Unknown Verified 03/05/24 09:37 General Stated Complaint: SutureRem LANCE: 4 Exam Extrem Other: Right second digit wound healing well, small area of dehiscence with suture ruptured, no signs of infection, motor intact Course Vital Signs Vital signs: Vital Signs Pulse 56 L 03/05/24 09:31 Respiratory Rate 15 03/05/24 09:31 Blood Pressure 113/64 03/05/24 09:31 Pulse Oximetry 97 03/05/24 09:31 Pulse 56 L 03/05/24 09:31 Respiratory Rate 15 03/05/24 09:31 Respiratory Effort Normal 03/05/24 09:36 Blood Pressure 113/64 03/05/24 09:31 Blood Pressure Position Sitting 03/05/24 09:31 Pulse Oximetry 97 03/05/24 09:31 Oxygen Delivery Method Room Air 03/05/24 09:31 Oxygen Flow Rate 0 03/05/24 09:31 Pain Level 0 03/05/24 09:31 Medical Decision Making 38-year-old male here 10 days post suture repair of his right second digit from dog bite for suture removal. One of the sutures did tear. There is some wound dehiscence at area of suture failure. No signs of acute inflammation. Sutures removed without complication. Plan for continued healing by secondary intention. Sterile dressing applied. Quality:[facility] Health Related Social Needs: No Data to Display [facility] All Active Problems (Updated 03/05/24 @ 10:14 by Wilmer Butler MD) Visit for suture removal (Acute) Dog bite of finger (Acute) Medical History Epigastric pain (~08/2018) [facility] ED visit 10/12/18. Presented with epigastric pain which he reports he had for weeks, declined imaging as he had CT at [facility] [place]08/18 (seen in [facility] [place] for epigastric pain).mg History of small bowel obstruction (08/2018) Bladder cancer cystoprostatectomy 2007 Hyperlipidemia HTN (hypertension) Diabetes Surgical History S/P radical cystoprostatectomy (~2007) Social History Smoking/Tobacco Use Status: Never Smoking risk assessment performed?: Yes Drug use: Never Do you feel safe in your relationship?: Yes
== END 2024-03-05 10:32 | disposition home or self-care (01) ==
PROVIDERS: Emergency Provider Student in an Organized Health Care Education/Training Program; PCP Internal Medicine Adolescent Medicine
DX: Z48.02 Encounter for removal of sutures (principal)